=== PATIENT | female | born 1950 | race Caucasian/White ===

== ENCOUNTER 2020-12-13 18:04 | Emergency (ER) | payer MEDICARE, MEDICAID ==
[~2020-12-13] VITALS: Ht 167.6 cm; Wt 79.5 kg
[2020-12-13 18:09] VITALS: BP 164/89
== END 2020-12-13 19:04 | disposition home or self-care (01) ==
LOC: ER 18:05
DX: S93.601A Unspecified sprain of right foot, initial encounter (principal); J45.909 Unspecified asthma, uncomplicated; Z88.0 Allergy status to penicillin; Z88.8 Allergy status to other drugs, medicaments and biological substances; W01.0XXA Fall on same level from slipping, tripping and stumbling without subsequent striking against object, initial encounter; Y93.01 Activity, walking, marching and hiking; Y92.89 Other specified places as the place of occurrence of the external cause; Y99.8 Other external cause status
CPT/HCPCS: 29540; 73630; 99283

== ENCOUNTER 2021-12-02 16:13 | Emergency (ER) | payer MEDICARE, MEDICAID ==
[~2021-12-02] VITALS: Ht 170.2 cm; Wt 78.2 kg
[2021-12-02] MEDS ORDERED: methylPREDNISolone sod succ 125mg/2ml vial IV ONE (17:35)
[2021-12-02] MEDS ORDERED: ipratropium/albuterol 3ml nebule NEB ONE (17:35)
[2021-12-02 18:14] LABS: BASOPHILS # (AUTO) 0.1 X10'3 (0-0.2); BASOPHILS % (AUTO) 1.1 % (0-1); EOSINOPHILS % (AUTO) 0.3 % (0-6); HEMATOCRIT 41.7 % (35.0-45.0); HEMOGLOBIN 13.9 g/dl (12.0-16.0); LYMPHOCYTES # (AUTO) 0.5 X10'3 (1.1-4.8); LYMPHOCYTES % (AUTO) 9.1 % (21-51); MEAN CORPUSCULAR HEMOGLOBIN 32.3 PG (27.0-31.0); MEAN CORPUSCULAR HGB CONC 33.2 g/dL (33.0-36.5); MEAN CORPUSCULAR VOLUME 97.2 FL (78-98); MEAN PLATELET VOLUME 7.5 FL (7.4-10.4); MONOCYTES # (AUTO) 0.7 X10'3 (0-0.9); MONOCYTES % (AUTO) 11.8 % (2-12); NEUTROPHILS # (AUTO) 4.5 X10'3 (1.8-7.7); NEUTROPHILS % (AUTO) 77.7 % (42-75); PLATELET COUNT 216 X10'3 (140-440); RED BLOOD COUNT 4.29 X10'6 (4.20-5.60); RED CELL DISTRIBUTION WIDTH 12.2 % (11.5-14.5); WHITE BLOOD COUNT 5.8 X10'3 (4.5-11.0)
[2021-12-02 18:33] LABS: ALANINE AMINOTRANSFERASE 29 U/L (12-78); ALBUMIN 3.6 G/DL (3.4-5.0); ALBUMIN/GLOBULIN RATIO 0.9 (1.1-1.5); ALKALINE PHOSPHATASE 101 IU/L (46-116); ANION GAP 9 (8-16); ASPARTATE AMINO TRANSFERASE 28 U/L (10-37); BILIRUBIN,TOTAL 0.3 MG/DL (0.1-1.0); BLOOD UREA NITROGEN 9 MG/DL (7-18); BUN/CREATININE RATIO 14.8 (6.6-38.0); CALCIUM 9.2 MG/DL (8.5-10.1); CHLORIDE 105 MMOL/L (99-107); CREATININE 0.61 MG/DL (0.40-0.90); GLUCOSE 106 MG/DL (70-104); POTASSIUM 3.6 MMOL/L (3.5-5.1); SODIUM 141 MMOL/L (135-145); TOTAL CARBON DIOXIDE 27.4 MMOL/L (24-32); TOTAL PROTEIN 7.4 G/DL (6.4-8.2); eGFR > 90 ML/MIN
[2021-12-02] MEDS ORDERED: LEVA0.6319 NEB (19:01)
[2021-12-02] MEDS ORDERED: PRED20TA PO (19:01)
[2021-12-02] MEDS ORDERED: LORA-269 PO (19:01)
[2021-12-02 19:21] VITALS: BP 159/102
[2021-12-03] MEDS ORDERED: ALB0.5UD IH (21:06)
[2021-12-03] MEDS ORDERED: PRED10TA23 PO (21:06)
== END 2021-12-02 19:24 | disposition home or self-care (01) ==
LOC: ER 16:14
DX: J06.9 Acute upper respiratory infection, unspecified (principal); J45.901 Unspecified asthma with (acute) exacerbation; Z88.0 Allergy status to penicillin; Z88.8 Allergy status to other drugs, medicaments and biological substances; Z79.899 Other long term (current) drug therapy
CPT/HCPCS: 36415; 71045; 80053; 85025; 93005; 94640; 96374; 99285; J2930; 94760

== ENCOUNTER 2021-12-03 19:39 | Emergency (ER) | payer MEDICARE, MEDICAID ==
[~2021-12-03] VITALS: Ht 170.2 cm; Wt 75.0 kg
[~2021-12-03 19:39] MED LIST: LEVA0.6319 NEB; LORA-269 PO; PRED20TA PO
[2021-12-03 19:46] VITALS: BP 183/109
[2021-12-03] MEDS ORDERED: predniSONE 20 mg tablet PO ONE (19:50)
[2021-12-03] MEDS: albuterol 2.5 MG/3 ML nebule CONTNEB PRN ×2 (20:14→20:45)
[2021-12-03] MEDS ORDERED: PRED10TA23 PO (21:06)
[2021-12-03] MEDS ORDERED: ALB0.5UD IH (21:06)
== END 2021-12-03 21:22 | disposition home or self-care (01) ==
LOC: ER 19:40
DX: J45.901 Unspecified asthma with (acute) exacerbation (principal); R06.02 Shortness of breath; R06.2 Wheezing; Z88.0 Allergy status to penicillin; Z88.8 Allergy status to other drugs, medicaments and biological substances; Z79.899 Other long term (current) drug therapy
CPT/HCPCS: 94640; 94760; 99283

== ENCOUNTER 2024-07-14 21:43 | Emergency (ER) | payer BC, MEDICAID ==
[~2024-07-14] VITALS: Ht 167.6 cm; Wt 80.5 kg
[~2024-07-14 21:43] MED LIST changes: -PRED20TA PO
[2024-07-15] MEDS: TETanus/Pertussis (Acell)/Diphther VAC/PF (Tdap-Adult) 0.5ml syringe IMVAC ONE (03:12)
[2024-07-15] MEDS: LIDOcaine/epinephrine/tetracaine TOPICAL sol 3 ML syringe TOP ONE (03:13)
[2024-07-15] MEDS ORDERED: HYDR-3965 PO (04:35)
[2024-07-15] MEDS: ondansetron 4mg rapidly disintigrating tab PO ONE (04:50)
[2024-07-15] MEDS: HYDROcodone/acetaminophen 5mg/325mg tablet PO ONE (04:50)
[2024-07-15 04:55] VITALS: BP 173/115; PULSE 78; RESP 18; TEMP 98.3; O2SAT 99
== END 2024-07-15 04:56 | disposition home or self-care (01) ==
LOC: ER 21:43
DX: S01.81XA Laceration without foreign body of other part of head, initial encounter (principal); J45.909 Unspecified asthma, uncomplicated; Z88.0 Allergy status to penicillin; Z88.8 Allergy status to other drugs, medicaments and biological substances; W18.39XA Other fall on same level, initial encounter; Y93.89 Activity, other specified; Y92.89 Other specified places as the place of occurrence of the external cause; Y99.8 Other external cause status
CPT/HCPCS: 12013; 70486; 71045; 76100; 99284; J3490; 90715